=== PATIENT | female | born 1945 | race Caucasian/White ===

== ENCOUNTER 2022-04-11 13:54 | Emergency (ER) | payer MEDICARE, SELFPAY ==
[2022-04-11 14:30] VITALS: BP 189/94; PULSE 87; RESP 16; TEMP 36.8; O2SAT 96
--- NOTE | 2022-04-11 16:21 | ED.NURSE ---
pt verbally dc'd by dr. [email or web address]
--- NOTE | 2022-04-11 16:23 | ED_ITS ---
HPI - General Adult General Date Seen: 04/11/22 Chief complaint: Extremity Pain/Injury, Lower Stated complaint: Stepped on sewing needle w/ R leg Time Seen by Provider: 04/11/22 16:02 Source: patient Mode of arrival: ambulatory Limitations: no limitations History of Present Illness HPI narrative: Patient is a 76-year-old otherwise healthy woman who presents after stepping on a sewing needle with her right foot. She was in stocking feet at the time. It entered her heel and her pulled out. He estimates that it was maybe a cm into her foot. At this time, they cannot identify where it entered her foot but it did bleed at the time. They called their insurance company, [employer] and spoke to the triage nurse, who told them that she needed to be seen within an hour. They looked for an open urgent care but the nearest 1 was 45 minutes away, and so they came to the ER. They are uncertain why they were told she needed to be seen within our. Her tetanus is up-to-date as of 2017. Related Data Allergies Allergy/AdvReac Type Severity Reaction Status Date / Time No Known Drug Allergies Allergy Verified 04/11/22 14:34 Review of Systems Status of ROS: Reports: 6 or more systems reviewed and unremarkable except as noted in History and below Exam Narrative: Exam Narrative: Vital signs reviewed In general, an alert, well-appearing woman. Extremities: Examination of the right foot shows no visible wound. No tenderness, no bleeding, no erythema, no abnormalities. Skin: Warm and dry, well perfused. Const: Vital Signs, click to edit/add: Vital Signs - 24 hr 04/11/22 14:30 Temperature 98.2 F Pulse Rate [Left P ulse Oximeter] 87 Respiratory Rate 16 Blood Pressure [Ri ght Upper Arm] 189/94 H Pulse Oximetry 96 Oxygen Delivery Me thod Room Air Course Course Hospital Course: At this time, I recommend no treatment. Prophylactic antibiotics are unlikely to be of benefit in terms of prevention of infection. This was a clean sewing needle, going into stocking feet. Her tetanus does not need to be updated. I am unclear why the triage nurse at her insurance company recommended that she be seen within an hour. Were it not for this recommendation she would not have come to the ER but would have gone to an Urgent Care on a less emergent basis. We discussed signs of infection such as redness, swelling, pain, drainage, and if those symptoms develop, she should be seen again. Given that I can not identify the side of the wound, there really is not anything to clean or dress here. She is walking without any pain. They are visiting here from [place], blood pressure is a little high, recommend rechecking that with primary care. Vital Signs Vital signs: Initial Vital Signs Temperature 98.2 F 04/11/22 14:30 Temperature Source Temporal Artery Scan 04/11/22 14:30 Pulse Rate 87 04/11/22 14:30 Pulse Rhythm 04/11/22 14:30 Respiratory Rate 16 04/11/22 14:30 Blood Pressure 189/94 H 04/11/22 14:30 Blood Pressure Mean 125 04/11/22 14:30 Blood Pressure Position Sitting 04/11/22 14:30 Pulse Oximetry 96 04/11/22 14:30 Oxygen Delivery Method 04/11/22 14:30 Vital Signs Temperature 98.2 F 04/11/22 14:30 Pulse Rate 87 04/11/22 14:30 Respiratory Rate 16 04/11/22 14:30 Blood Pressure 189/94 H 04/11/22 14:30 Pulse Oximetry 96 04/11/22 14:30 Oxygen Delivery Method 04/11/22 14:30 Temperature 98.2 F 04/11/22 14:30 Pulse Rate 87 04/11/22 14:30 Respiratory Rate 16 04/11/22 14:30 Blood Pressure 189/94 H 04/11/22 14:30 Pulse Oximetry 96 04/11/22 14:30 Oxygen Delivery Method 04/11/22 14:30 Discharge Plan Discharge Clinical Impression: Puncture wound of foot Patient Disposition: Home, Self-Care Condition: Stable Stand Alone Forms: MyHealth Info Instructions
== END 2022-04-11 16:33 | disposition home or self-care (01) ==
PROVIDERS: Emergency Provider Emergency Medicine
DX: S91.331A Puncture wound without foreign body, right foot, initial encounter (principal); W22.8XXA Striking against or struck by other objects, initial encounter
CPT/HCPCS: 99282; 99283